=== PATIENT | female | born 2000 | race Caucasian/White ===

== ENCOUNTER 2018-07-30 07:36 | Day surgery (SDC) | payer OTHER ==
[2018-07-30] MEDS ORDERED: MOTRIN IB200 MG PO (15:58)
== END 2018-07-30 16:35 | disposition home or self-care (01) ==
LOC: CIR.AMB 07:36
DX: N80.3 Endometriosis of pelvic peritoneum (principal)

== ENCOUNTER 2023-05-22 05:15 | Day surgery (SDC) | payer OTHER ==
[~2023-05-22 05:15] MED LIST: CLONAZEPAM0.5 MG PO; LAMICTAL100 MG PO; MOTRIN IB200 MG PO
[2023-05-22] MEDS ORDERED: IBU800 MG PO (08:42)
[2023-05-22] MEDS ORDERED: NEURONTIN300 MG PO (08:44)
== END 2023-05-22 11:10 | disposition home or self-care (01) ==
LOC: CIR.AMB 05:15
PROVIDERS: ATTEND Obstetrics & Gynecology Gynecology
DX: Z30.2 Encounter for sterilization (principal); Z64.1 Problems related to multiparity; Z20.822 Contact with and (suspected) exposure to COVID-19

== ENCOUNTER 2024-10-17 10:32 | Inpatient (IN) | payer OTHER ==
[~2024-10-17] VITALS: Ht 243.8 cm; Wt 63.5 kg
[~2024-10-17 10:32] MED LIST changes: +IBU800 MG PO; +NEURONTIN300 MG PO
[2024-10-17] MEDS ORDERED: TRAZODONE HCL100 MG PO (12:54)
[2024-10-17 12:55] VITALS: BP 119/79
[2024-10-17 13:08] LABS: RH POSITIVE
[2024-10-23] MEDS ORDERED: CEFAZOLIN SODIUM 1,000 MG VIAL ONE (08:43)
[2024-10-23] MEDS ORDERED: METRONIDAZOLE/SODIUM CHLORIDE 500 MG/100 ML PIGGYBACK IV ONE ×2 (08:43→09:20)
[2024-10-23] MEDS ORDERED: CEFTRIAXONE SODIUM 2,000 MG VIAL ONE ×2 (08:43→09:20)
[2024-10-23] MEDS ORDERED: THROMBIN,HU/FIBRINOGEN/CALCIUM 10 ML SYRINGE TOP ONE (10:52)
[2024-10-23] MEDS ORDERED: VISTASEAL DUAL APPICATOR 1 EACH APPL TOP ONE (10:52)
[2024-10-23] MEDS ORDERED: POVIDONE-IODINE 118 ML BOTT TOP ONE (11:16)
[2024-10-23] MEDS ORDERED: RINGERS SOLUTION,LACTATED 1,000 ML IV SCH (13:05)
[2024-10-23] MEDS ORDERED: CELECOXIB 200 MG CAPSULE PO STA (13:06)
[2024-10-23] MEDS ORDERED: ONDANSETRON HCL 2 MG/ML VIAL IV SCH (14:00)
[2024-10-23] MEDS ORDERED: ACETAMINOPHEN 325 MG TABLET PO SCH (14:00)
[2024-10-23] MEDS ORDERED: MORPHINE SULFATE 4 MG/ML VIAL IV ONE (14:05)
[2024-10-23 17:00] LABS: BASO % 0.1 % (0.1-1.2); HEMATOCRIT 36.5 % (34.1-44.9); HEMOGLOBIN 11.8 g/dL (11.2-15.7); LYMPH # 1.73 (1.18-3.74); LYMPH % 12.6 % (19.3-53.1); MEAN CORPUSCULAR HEMOGLOBIN 27.8 pg (25.6-32.2); MONO # 0.78 (0.24-0.82); MONO % 5.7 % (4.7-12.5); NEUT % 81.3 % (34.0-71.1); PLATELET COUNT 269 K/uL (163-369); RED BLOOD COUNT 4.25 M/uL (3.93-5.22); RED CELL DISTRIBUTION WIDTH 12.5 % (11.6-14.4)
[2024-10-23] MEDS ORDERED: GABAPENTIN 100 MG CAPSULE PO SCH (17:00)
[2024-10-23 17:14] VITALS: BP 119/79
[2024-10-23 17:22] LABS: CALCIUM 8.7 mg/dL (8.5-10.1); CREATININE SERUM 0.64 mg/dL (0.55-1.02); GFR 113.06; POTASSIUM 4.24 mEq/L (3.5-5.1)
[2024-10-23 19:33] LABS: BASO % 0.2 % (0.1-1.2); HEMATOCRIT 37.1 % (34.1-44.9); HEMOGLOBIN 11.9 g/dL (11.2-15.7); LYMPH # 2.15 (1.18-3.74); LYMPH % 12.9 % (19.3-53.1); MEAN CORPUSCULAR HEMOGLOBIN 27.2 pg (25.6-32.2); MONO # 0.97 (0.24-0.82); MONO % 5.8 % (4.7-12.5); NEUT # 13.51 (1.56-6.13); NEUT % 80.7 % (34.0-71.1); PLATELET COUNT 337 K/uL (163-369); RED BLOOD COUNT 4.38 M/uL (3.93-5.22); RED CELL DISTRIBUTION WIDTH 12.4 % (11.6-14.4)
[2024-10-23 20:58] VITALS: BP 107/65
[2024-10-24] VITALS: BP 103/65
[2024-10-24 06:57] LABS: BASO % 0.1 % (0.1-1.2); EOS # 0.04 (0.04-0.54); EOS % 0.4 % (0.7-7.0); HEMOGLOBIN 11.1 g/dL (11.2-15.7); LYMPH # 1.54 (1.18-3.74); MONO # 0.69 (0.24-0.82); MONO % 7.2 % (4.7-12.5); NEUT # 7.29 (1.56-6.13); PLATELET COUNT 243 K/uL (163-369); RED BLOOD COUNT 3.97 M/uL (3.93-5.22); RED CELL DISTRIBUTION WIDTH 12.4 % (11.6-14.4)
[2024-10-24 07:52] LABS: CALCIUM 8.6 mg/dL (8.5-10.1); CREATININE SERUM 0.53 mg/dL (0.55-1.02); GFR 140.55; POTASSIUM 3.98 mEq/L (3.5-5.1)
[2024-10-24 08:22] VITALS: BP 114/75
[2024-10-24] MEDS ORDERED: LAMICTAL 200 MG PO SCH (09:00)
== END 2024-10-24 09:28 | disposition home or self-care (01) | DRG 743 ==
LOC: O/R 10-23 05:50 → SURH 10-23 09:50 → OB/GYN 10-23 14:42
PROVIDERS: Obstetrics & Gynecology Gynecology; Surgery; Urology; ADMIT Student in an Organized Health Care Education/Training Program; ATTEND Student in an Organized Health Care Education/Training Program
PROC: 0DTJ4ZZ Resection of Appendix, Percutaneous Endoscopic Approach (ICD-10-PCS; 2024-10-23)
PROC: 0UT94ZZ Resection of Uterus, Percutaneous Endoscopic Approach (ICD-10-PCS; principal; 2024-10-23 09:50)
PROC: 0WQF4ZZ Repair Abdominal Wall, Percutaneous Endoscopic Approach (ICD-10-PCS; 2024-10-23 09:50)
PROC: 0DNW4ZZ Release Peritoneum, Percutaneous Endoscopic Approach (ICD-10-PCS; 2024-10-23 09:50)
DX: N80.03 Adenomyosis of the uterus (principal); N72 Inflammatory disease of cervix uteri; R10.2 Pelvic and perineal pain; K42.9 Umbilical hernia without obstruction or gangrene